=== PATIENT | female | born 1995 | race Caucasian/White ===

== ENCOUNTER 2020-12-30 06:35 | Inpatient (IN) ==
[2020-12-30] MEDS ORDERED: *HR* Nalbuphine 10 MG/ML AMPUL IV PRN (06:39)
[2020-12-30] MEDS ORDERED: Famotidine 20 MG/2 ML VIAL IVP PRN (06:39)
[2020-12-30] MEDS ORDERED: Naloxone 0.4 MG/ML INJ IVP PRN (06:39)
[2020-12-30] MEDS ORDERED: Azithromycin 500 MG in 0.9 % Sodium Chloride 250 ML IVPB PRN (06:39)
[2020-12-30] MEDS ORDERED: Ondansetron 4 MG/2 ML VIAL IVP PRN (06:39)
[2020-12-30] MEDS ORDERED: Lidocaine 1% 20 ML MDV INFILT PRN (06:39)
[2020-12-30] MEDS ORDERED: Metoclopramide 10 MG/2 ML VIAL IVP PRN (06:39)
[2020-12-30 08:22] LABS: Amphetamine Screen,Urine Negative ng/mL (Cutoff=1000); Barbiturate Screen,Urine Negative ng/mL (Cutoff=200); Benzodiazepines Screen,Urine Negative ng/mL (Cutoff=200); Cannabinoid Screen,Urine Negative ng/mL (Cutoff = 50); Cocaine Screen,Urine Negative ng/mL (Cutoff= 300); Opiate Screen,Urine Negative ng/mL (Cutoff=300); Phencyclidine Screen,Urine Negative ng/mL (Cutoff=25)
[2020-12-30] MEDS ORDERED: EPHEDrine 50 MG/ML VIAL IVP PRN (08:22)
[2020-12-30] MEDS ORDERED: Penicillin G Potassium 5,000,000 UNIT in 0.9 % Sodium Chloride Mini Bag 100 ML IVPB ONE (08:27)
[2020-12-30] MEDS ORDERED: Epidural Premix (fent/bupiv) 110 ML EP SCH (08:30)
[2020-12-30] MEDS ORDERED: Ringers Solution, Lactated 1,000 ML IVC SCH (08:30)
[2020-12-30 08:34] LABS: Basophils % 0.2 %; Eosinophils # 0.2 K/mcL (0.0-0.6); Eosinophils % 0.9 %; Hematocrit 41.6 % (35.3-44.9); Hemoglobin 14.1 g/dL (11.5-15.4); Immature Granulocytes % 0.8 % (0-4); Lymphocytes # 3.1 K/mcL (0.6-4.6); Mean Corpuscular HGB Conc 33.9 g/dL (31.6-35.5); Mean Corpuscular Volume 91.4 fL (83.0-100.0); Mean Platelet Volume 10.4 fL (9.4-12.4); Monocytes # 1.1 K/mcL (0.0-1.3); Monocytes % 6.1 %; Neutrophils # 12.7 K/mcL (1.6-8.9); Platelet Count 239 K/mcL (140-400); Red Blood Count 4.55 M/mcL (3.82-4.97); Red Cell Distribution Width 13.2 % (11.5-14.5); White Blood Count 17.1 K/mcL (4.3-11.1)
[2020-12-30] MEDS ORDERED: Oxytocin 20 units/ LR 1000 mL 20 UNIT/1,000 ML BAG IVC SCH ×2 (09:15→16:00)
[2020-12-30] MEDS ORDERED: Penicillin G Potassium 2,500,000 UNIT/105 ML MLS IVPB SCH (12:00)
[2020-12-30] MEDS ORDERED: Lanolin 7 G OINT...G. TP PRN (15:57)
[2020-12-30] MEDS ORDERED: Benzocaine/Menthol 56 GM AEROSOL SPRAY TP PRN (15:57)
[2020-12-30] MEDS ORDERED: Acetaminophen 325 MG TABLET PO PRN (18:00)
[2020-12-30] MEDS: Ibuprofen 600 MG TABLET PO SCH (18:33)
[2020-12-30] MEDS: *HR* Buprenorphine HCl 2 MG SUBLINGUAL TABLET SL SCH (19:51)
[2020-12-31] MEDS: Ibuprofen 600 MG TABLET PO SCH ×3 (00:34→20:27)
[2020-12-31] MEDS: *HR* Buprenorphine HCl 2 MG SUBLINGUAL TABLET SL SCH ×2 (07:59→20:27)
[2020-12-31] MEDS: Prenatal Vit/FA 1 EACH TABLET PO SCH (07:59)
[2020-12-31 21:03] VITALS: O2SAT 96
[2021-01-01] MEDS: Ibuprofen 600 MG TABLET PO SCH ×2 (02:30→09:01)
[2021-01-01] MEDS: *HR* Buprenorphine HCl 2 MG SUBLINGUAL TABLET SL SCH (09:01)
[2021-01-01] MEDS: Prenatal Vit/FA 1 EACH TABLET PO SCH (09:02)
[2021-01-01 09:25] VITALS: BP 111/81; PULSE 83; TEMP 97.6
== END 2021-01-01 14:43 | disposition home or self-care (01) | DRG 560 ==
LOC: 1NENULAB 06:35 → 1NENUOBS 18:04
PROVIDERS: ADMIT Obstetrics & Gynecology; ATTEND Obstetrics & Gynecology